=== PATIENT | male | born 1985 | race Hispanic/Latino ===

== ENCOUNTER 2021-03-12 11:34 | Emergency (ER) | payer SELFPAY ==
[2021-03-12 12:48] LABS: Absolute Lymphocytes (CBC) 1.9 K/uL (0.7-4.9); Basophils % 1.2 % (0-1.3); Hematocrit 41.6 % (39.6-49.0); Lymphocytes % 22.6 % (15.3-44.8); MPV 8.8 fL (7.6-11.3); RBC Red Blood Cell Count 4.55 M/uL (4.33-5.43)
[2021-03-12] MEDS ORDERED: KETOROLAC 30 MG/ML INJ ONE (12:53)
[2021-03-12 13:05] LABS: Albumin 3.2 g/dL (3.4-5.0); Bilirubin Direct 0.2 mg/dL (0-0.2); Bilirubin Total 0.6 mg/dL (0.2-1.0); Potassium 4.1 mmol/L (3.5-5.1); Protein, Total 6.9 g/dL (6.4-8.2)
--- NOTE | 2021-03-12 13:53 | RAD REPORT ---
EXAM DESCRIPTION: CTAbdomen Pelvis W Contrast - 03/12/2021 1:35 pm CLINICAL HISTORY: Abdominal pain. ABD PAIN COMPARISON: No comparisons TECHNIQUE: Biphasic CT imaging of the abdomen and pelvis was performed with 100 ml non-ionic IV cont rast. All CT scans are performed using dose optimization technique as appropriate and may include automated exposure control or mA/KV adjustment according to patient size. FINDINGS: The lung bases are clear. The liver demonstrates mild fatty infiltration with several scattered low-density lesions present, no nspecific. No aggressive liver lesion or biliary dilatation. Spleen, pancreas, adrenal glands and kidneys are within normal limits. No bowel obstruction, free air, free fluid or abscess. Significant sigmoid colon diverticulosis is pr esent with moderate fecal retention. The appendix is normal. No evidence of significant lymphadenopa thy. No suspicious bony findings. IMPRESSION: Prominent sigmoid diverticulosis coli is present with moderate fecal retention. Fatty liver is noted with scattered nonspecific low-density liver lesions, likely benign.
--- NOTE | 2021-03-12 15:01 | RAD REPORT ---
EXAM DESCRIPTION: US - Abdomen Exam Limited - 03/12/2021 2:33 pm CLINICAL HISTORY: ABD PAIN COMPARISON: Abdomen Pelvis W Contrast dated 03/12/2021 FINDINGS: The gallbladder could not be accurately identified which may be due to contraction. The co mmon bile duct is prominent in size measuring 14 mm. The liver demonstrates no findings of intrahepatic biliary dilatation. IMPRESSION: Poor visualization of the gallbladder probably related to gallbladder contraction (recen t meal). Common bile duct is enlarged measuring 14 mm. MRCP followup assessment may be useful to further asses s the biliary tree.
--- NOTE | 2021-03-12 17:57 | RAD REPORT ---
EXAM DESCRIPTION: MRI - Cholangiogram - 03/12/2021 5:44 pm CLINICAL HISTORY: abd pain Right upper quadrant abdominal pain COMPARISON: No comparisons FINDINGS: Three-dimensional MRCP was performed using maximum intensity projection reconstruction on the same work station. No intrahepatic biliary tree dilatation is seen. The common bile duct is normal caliber without evide nce of retained stone, stricture or mass. The pancreatic duct is not pathologically dilated. The gallbladder is unremarkable. Limited T2 sequences through the abdomen demonstrates no bulky adenopathy, significant free fluid or abscess. IMPRESSION: Negative MR cholangiogram.
--- NOTE | 2021-03-12 18:23 | ER ---
Nurse's Notes [facility] Name: Salvador Lockett Age: 35 yrs Sex: Male : 1985 Arrival Date: 03/12/2021 Time: 11:36 Bed 14 Private MD: Diagnosis: Epigastric abdominal tenderness Presentation: 03/12 11:40 Chief complaint: Patient states: he started having abdominal pain in the mid upper ap3 region yesterday, however today it got worse and his boss told him to come get checked out. Patient states that this has happened before, a few years ago and he was told it was "bacteria in his gut". Since then, the pain has returned every couple of months or so. Chief complaint:. Coronavirus screen: At this time, the client does not indicate any symptoms associated with coronavirus-19. Ebola Screen: No symptoms or risks identified at this time. Initial Sepsis Screen: Does the patient meet any 2 criteria? No. Patient's initial sepsis screen is negative. Does the patient have a suspected source of infection? No. Patient's initial sepsis screen is negative. Risk Assessment: Do you want to hurt yourself or someone else? Patient reports no desire to harm self or others. Onset of symptoms was March 11, 2021. 11:40 Method Of Arrival: Ambulatory ap3 11:40 Acuity: DOUGLAS 3 ap3 Triage Assessment: 11:43 General: Appears in no apparent distress. Behavior is calm, cooperative. Pain: ap3 Complains of pain in epigastric area Pain does not radiate. Pain currently is 6 out of 10 on a pain scale. at worst was 9 out of 10 on a pain scale. Quality of pain is described as burning, Pain began gradually, 1 day ago. Alleviated by anything cold that he drinks Aggravated by any alcohol, anything spicy. Cardiovascular: Patient's skin is warm and dry. Respiratory: Airway is patent. GI: Reports upper abdominal pain, epigastric pain. Historical: - Allergies: 11:43 No Known Allergies; ap3 - Home Meds: 11:43 None [Active]; ap3 - PSHx: 11:43 None; ap3 - Immunization history:: Adult Immunizations unknown, Client reports having NOT received the Covid vaccine. - Social history:: Smoking status: Reported history of juuling and/or vaping. Patient uses alcohol, occasionally. Screenin:44 Abuse screen: Denies threats or abuse. Nutritional screening: No deficits noted. oh Tuberculosis screening: No symptoms or risk factors identified. Fall Risk None identified. Assessment: 12:44 GI: Reports lower abdominal pain, upper abdominal pain, bloating, since yesterday. oh Vital Signs: 11:40 BP 143 / 86; Pulse 77; Resp 19; Temp 98.1(TE); Pulse Ox 100% on R/A; Weight 151.95 kg; ap3 Height 6 ft. 4 in. (193.04 cm); Pain 6/10; 19:06 BP 115 / 71; Pulse 55; Resp 17; Pulse Ox 99% on R/A; oh 11:40 Body Mass Index 40.78 (151.95 kg, 193.04 cm) ap3 ED Course: 11:36 Patient arrived in ED. mr 11:43 Triage completed. ap3 11:45 Arm band placed on right wrist. ap3 11:47 S[facility]hi Hernandez [facility]C [facility] kb 11:47 Robert Stark MD is Attending Physician. kb 12:18 Madhavi Causey, GAYATRI is Primary Nurse. oh 12:37 Inserted saline lock: 20 gauge in right antecubital area, using aseptic technique. oh Blood collected. 12:45 Bed in low position. Call light in reach. oh 13:35 CT Abd/Pelvis - IV Contrast Only In Process Unspecified. EDMS 14:33 US Abdomen Limited In Process Unspecified. EDMS 17:34 Cholangiogram In Process Unspecified. EDMS 18:22 Etienne Humphreys MD is Referral Physician. zen 19:07 IV discontinued, bleeding controlled, Pressure dressing applied. oh 19:07 No provider procedures requiring assistance completed. oh Administered Medications: 12:36 Drug: Ketorolac 15 mg Route: IVP; Site: right antecubital; oh 18:09 Drug: morphine 4 mg Route: IVP; Site: right antecubital; oh 18:09 Drug: Zofran (Ondansetron) 4 mg Route: IVP; Site: right antecubital; oh 18:09 Drug: NS 0.9% 1000 ml Route: IV; Rate: 1000 ml; Site: right antecubital; oh Outcome: 18:22 Discharge ordered by . zen 19:07 Discharged to home oh 19:07 Condition: stable 19:07 Discharge instructions given to patient. 19:07 Patient left the ED. oh Signatures: Dispatcher [employer] EDSravanthi Reynaga, PUBLIC HEALTH SANITARIAN TECHNICIAN-C PUBLIC HEALTH SANITARIAN TECHNICIAN-Robert Negrete MD MD cha Rivera, Mary mr Radhika Ziegler, RN RN ap3 Madhavi Causey, RN RN oh
--- NOTE | 2021-03-12 18:23 | EDPHYS ---
Physician Documentation [facility] Name: Salvador Lockett Age: 35 yrs Sex: Male : 1985 Arrival Date: 03/12/2021 Time: 11:36 Bed 14 Private MD: ED Physician Robert Stark HPI: 03/12 17:14 This 35 yrs old Male presents to ER via Ambulatory with complaints of kb Abdominal Pain. 17:14 The patient presents with abdominal pain in the upper abdomen. Onset: The kb symptoms/episode began/occurred yesterday. The symptoms do not radiate. Associated signs and symptoms: none. The symptoms are described as constant. Modifying factors: The symptoms are alleviated by nothing, the symptoms are aggravated by nothing. Severity of pain: At its worst the pain was moderate in the emergency department the pain is unchanged. The patient has experienced similar episodes in the past, several times. The patient has not recently seen a physician. Pt reports upper abd/epigastric pain that started yesterday. Denies fever, n/v/d. States he had this pain in the past and was told it was a bacteria, completed a course of PCN at that time and has had the pain intermittently since then. . Historical: - Allergies: 11:43 No Known Allergies; ap3 - Home Meds: 11:43 None [Active]; ap3 - PSHx: 11:43 None; ap3 - Immunization history:: Adult Immunizations unknown, Client reports having NOT received the Covid vaccine. - Social history:: Smoking status: Reported history of juuling and/or vaping. Patient uses alcohol, occasionally. ROS: 17:16 Constitutional: Negative for fever, chills, and weight loss. kb 17:16 Abdomen/GI: Positive for abdominal pain, of the epigastric area, right upper quadrant and left upper quadrant. 17:16 All other systems are negative. Exam: 17:16 Constitutional: This is a well developed, well nourished patient who is awake, alert, kb and in no acute distress. Head/Face: Normocephalic, atraumatic. ENT: Moist Mucous membranes Cardiovascular: Regular rate and rhythm with a normal S1 and S2. No gallops, murmurs, or rubs. No pulse deficits. Respiratory: Respirations even and unlabored. No increased work of breathing, no retractions or nasal flaring. Abdomen/GI: Soft, non-tender. No distention Skin: Warm, dry with normal turgor. Normal color. MS/ Extremity: Pulses equal, no cyanosis. Neurovascular intact. Full, normal range of motion. Neuro: Awake and alert, GCS 15, oriented to person, place, time, and situation. Moves all extremities. Normal gait. Psych: Awake, alert, with orientation to person, place and time. Behavior, mood, and affect are within normal limits. Vital Signs: 11:40 BP 143 / 86; Pulse 77; Resp 19; Temp 98.1(TE); Pulse Ox 100% on R/A; Weight 151.95 kg; ap3 Height 6 ft. 4 in. (193.04 cm); Pain 6/10; 19:06 BP 115 / 71; Pulse 55; Resp 17; Pulse Ox 99% on R/A; oh 11:40 Body Mass Index 40.78 (151.95 kg, 193.04 cm) ap3 MDM: 12:02 Patient medically screened. kb 17:16 Data reviewed: vital signs, nurses notes. Data interpreted: Pulse oximetry: on room air kb is 100 %. Interpretation: normal. 17:40 Transition of care: After a detail discussion of the patient's case, care is kb transferred to Robert Stark MD. 03/12 11:47 Order name: Basic Metabolic Panel; Complete Time: 13:06 kb 03/12 11:47 Order name: CBC with Diff; Complete Time: 12:57 kb 03/12 11:47 Order name: Hepatic Function; Complete Time: 13:06 kb 03/12 11:47 Order name: Lipase; Complete Time: 13:06 kb 03/12 13:06 Order name: CT Abd/Pelvis - IV Contrast Only; Complete Time: 13:56 kb 03/12 13:57 Order name: US Abdomen Limited; Complete Time: 15:05 kb 03/12 11:47 Order name: IV Saline Lock; Complete Time: 12:36 kb 03/12 11:47 Order name: Labs collected and sent; Complete Time: 12:36 kb 03/12 15:10 Order name: Cholangiogram; Complete Time: 18:20 EDMS Administered Medications: 12:36 Drug: Ketorolac 15 mg Route: IVP; Site: right antecubital; oh 18:09 Drug: morphine 4 mg Route: IVP; Site: right antecubital; oh 18:09 Drug: Zofran (Ondansetron) 4 mg Route: IVP; Site: right antecubital; oh 18:09 Drug: NS 0.9% 1000 ml Route: IV; Rate: 1000 ml; Site: right antecubital; oh Disposition: 03/13 13:03 Co-signature as Attending Physician, Robert Stark MD I agree with the assessment and [facility] plan of care. Disposition Summary: 03/12/21 18:22 Discharge Ordered Location: Home zen Problem: new zen Symptoms: have improved zen Condition: Stable zen Diagnosis - Epigastric abdominal tenderness zen Followup: zen - With: Private Physician - When: 2 - 3 days - Reason: Recheck today's complaints, Continuance of care, Re-evaluation by your physician Followup: zen - With: Etienne Humphreys MD - When: 2 - 3 days - Reason: Recheck today's complaints, Re-evaluation by your physician Discharge Instructions: - Discharge Summary Sheet zen - Abdominal Pain, Adult zen Forms: - Medication Reconciliation Form zen - Thank You Letter zen - Antibiotic Education zen - Prescription Opioid Use [facility] Prescriptions: - Pepcid 20 mg Oral Tablet - take 1 tablet by ORAL route every 12 hours for 15 days; 30 tablet; Refills: 0, [facility] Product Selection Permitted - dicyclomine 20 mg Oral Tablet - take 1 tablet by ORAL route 4 times per day; 28 tablet; Refills: 0, Product zen Selection Permitted Signatures: Dispatcher [employer] Sravanthi Hayden FNP-C FNP-Robert Negrete MD MD cha Prokisch, Amanda, RN RN ap3 Madhavi Causey RN RN oh
[2021-03-12] MEDS ORDERED: ONDANSETRON 4 MG/2 ML VIAL ONE (18:28)
[2021-03-12] MEDS ORDERED: NA CHLORIDE 0.9% 1,000 ML ONE (18:28)
[2021-03-12] MEDS ORDERED: MORPHINE 4 MG/ML SYR ONE (18:28)
[2021-03-12 19:15] VITALS: TEMP 98.1
[2021-03-12 19:17] VITALS: BP 115/71; O2SAT 99
== END 2021-03-12 19:07 | disposition home or self-care (01) ==
LOC: ER 11:34
DX: R10.816 Epigastric abdominal tenderness (principal)
CPT/HCPCS: 36415; 74177; 74181; 76705; 80048; 80076; 83690; 85025; 96374; 96375; 99284; J2405; J7030; Q9967